=== PATIENT | male | born 1965 | race Caucasian/White ===

== ENCOUNTER 2020-08-21 10:24 | Emergency (ER) | payer OTHER ==
[2020-08-21 10:37] VITALS: BMI 26.1
[2020-08-21 10:42] VITALS: BP 137/78; PULSE 85; TEMP 99
== END 2020-08-21 11:37 | disposition home or self-care (01) ==
LOC: FER 10:24
DX: R07.9 Chest pain, unspecified (principal)
CPT/HCPCS: 99282-25